=== PATIENT | female | born 1965 | race Caucasian/White ===

== ENCOUNTER → 2018-04-20 14:14 | Outpatient (CLI) | payer BC ==
[2018-04-22 03:11] LABS: ANGIOTENSIN CONVERTING ENZYME 50 U/L (14-82)
== END | disposition home or self-care (01) ==
LOC: D.RT 14:14 → D.CT 15:00
PROVIDERS: Internal Medicine Pulmonary Disease
DX: R59.0 Localized enlarged lymph nodes (principal); R06.09 Other forms of dyspnea; J44.9 Chronic obstructive pulmonary disease, unspecified